=== PATIENT | female | born 1980 | race Caucasian/White ===

== ENCOUNTER 2017-01-15 11:30 | Emergency (ER) | payer BC, OTHER ==
[~2017-01-15] VITALS: Ht 177.8 cm; Wt 182.0 kg
[~2017-01-15 11:30] MED LIST: ESOM20CA PO
[2017-01-15 11:37] VITALS: TEMP 36.8; Ht 177.8 cm; Wt 182.0 kg
--- NOTE | 2017-01-15 11:56 | EMERGENCY ROOM VISIT NOTE ---
History Report prepared by Jaime: Anneliese Carter Under the Supervision of: Dr. Tony Andrade D.O. First contact with patient: 11:46 Chief Complaint: MENTAL HEALTH EVALUATION Stated Complaint: DEPRESSION History of Present Illness The patient is a 36 year old female who presents to the Emergency Room with complaints of worsening depression. The patient admits to a history of depression since she was 15 years old, for which she takes Zoloft, Wellbutrin, BuSpar and Klonopin. She reports in the past 2 weeks things have worsened, and she has thought about suicide. She admits to a plan of "going out of town, taking pills and putting a plastic bag over my head". She denies any triggering events worsening her depression. The patient admits she was previously treated inpatient at the [facility] when she was 18 years old. She follows with a local psychiatrist but does not follow with a therapist. Earlier today, the patient spoke to [facility], who recommended she come to the ED for evaluation. The patient states her LMP was 2 weeks ago and normal. She denies any recent fevers or illnesses or pain or swelling in her legs. She also denies any recent ETOH or illegal drug use. 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 A total of 10 systems reviewed and were otherwise negative. Past Medical & Surgical Medical Problems: (1) Depression (2) History of MRSA infection Social History Smoking Status: Current Every Day Smoker Alcohol Use: none Drug Use: none Marital Status: single Housing Status: lives with family Occupation Status: employed Current/Historical Medications Scheduled Bupropion HCl (Bupropion HCl), 200 MG PO QAM Bupropion HCl (Bupropion HCl), 100 MG PO BID Buspirone Hcl (Buspar), 15 MG PO BID Clonazepam (Klonopin), 0.5 MG PO BID Sertraline (Zoloft), 200 MG PO DAILY Allergies Coded Allergies: Vancomycin (Verified Allergy, Severe, HIVES, 01/15/17) Physical Exam Vital Signs Date Time Temp Pulse Resp B/P (MAP) Pulse Ox O2 Delivery O2 Flow Rate FiO2 01/15/17 17:43 78 18 147/99 97 01/15/17 14:00 80 18 141/101 96 Room Air 01/15/17 11:37 36.8 98 20 150/72 95 Room Air Physical Exam GENERAL: Patient is awake, alert, somewhat anxious appearing, but in no acute distress and resting comfortably EYES: The conjunctivae are clear. The pupils are round and reactive. EARS, NOSE, MOUTH AND THROAT: The nose is without any evidence of any deformity. Mucous membranes are moist tongue is midline NECK: The neck is nontender and supple. RESPIRATORY: Normal respiratory effort is noted there is no evidence of wheezing rhonchi or rales CARDIOVASCULAR: Regular rate and rhythm noted there no murmurs rubs or gallops normal S1 normal S2 GASTROINTESTINAL: The abdomen is soft. Bowel sounds are present in all quadrants. Abdomen is nontender MUSCULOSKELETAL/EXTREMITIES: There is no evidence of gross deformity full range of motion is noted in the hips and shoulders SKIN: There is no obvious evidence of any rash. There are no petechiae, pallor or cyanosis noted. NEUROLOGIC: Patient is awake alert and oriented x3 PSYCHIATRIC: The patient was very anxious appearing, her affect was very flat and she appears depressed and makes poor eye contact. She continues to admit to suicidal ideation with a very elaborate plan. Medical Decision & Procedures Laboratory Results 01/15/17 12:09 Red Blood Count 5.11, Mean Corpuscular Volume 84.5, Mean Corpuscular Hemoglobin 27.8, Mean Corpuscular Hemoglobin Concent 32.9, Mean Platelet Volume 9.5, Neutrophils (%) (Auto) 56.4, Lymphocytes (%) (Auto) 28.7, Monocytes (%) (Auto) 7.3, Eosinophils (%) (Auto) 5.9, Basophils (%) (Auto) 1.2, Neutrophils # (Auto) 4.31, Lymphocytes # (Auto) 2.19, Monocytes # (Auto) 0.56, Eosinophils # (Auto) 0.45, Basophils # (Auto) 0.09 01/15/17 12:09 Test 01/15/17 12:09 01/15/17 12:50 White Blood Count 7.64 K/uL (4.8-10.8) Red Blood Count 5.11 M/uL (4.2-5.4) Hemoglobin 14.2 g/dL (12.0-16.0) Hematocrit 43.2 % (37-47) Mean Corpuscular Volume 84.5 fL (80-100) Mean Corpuscular Hemoglobin 27.8 pg (25-34) Mean Corpuscular Hemoglobin Concent 32.9 g/dl (32-36) Platelet Count 344 K/uL (130-400) Mean Platelet Volume 9.5 fL (7.4-10.4) Neutrophils (%) (Auto) 56.4 % Lymphocytes (%) (Auto) 28.7 % Monocytes (%) (Auto) 7.3 % Eosinophils (%) (Auto) 5.9 % Basophils (%) (Auto) 1.2 % Neutrophils # (Auto) 4.31 K/uL (1.4-6.5) Lymphocytes # (Auto) 2.19 K/uL (1.2-3.4) Monocytes # (Auto) 0.56 K/uL (0.11-0.59) Eosinophils # (Auto) 0.45 K/uL (0-0.5) Basophils # (Auto) 0.09 K/uL (0-0.2) RDW Standard Deviation 41.0 fL (36.4-46.3) RDW Coefficient of Variation 13.4 % (11.5-14.5) Immature Granulocyte % (Auto) 0.5 % Immature Granulocyte # (Auto) 0.04 K/uL (0.00-0.02) Anion Gap 8.0 mmol/L (3-11) Est Creatinine Clear Calc Drug Dose 154.9 ml/min Estimated GFR () 94.2 Estimated GFR (Non- 81.2 BUN/Creatinine Ratio 8.8 (10-20) Calcium Level 8.4 mg/dl (8.5-10.1) Total Bilirubin 0.2 mg/dl (0.2-1) Direct Bilirubin < 0.1 mg/dl (0-0.2) Aspartate Amino Transf (AST/SGOT) 14 U/L (15-37) Alanine Aminotransferase (ALT/SGPT) 23 U/L (12-78) Alkaline Phosphatase 81 U/L (45-117) Total Protein 7.7 gm/dl (6.4-8.2) Albumin 3.6 gm/dl (3.4-5.0) Thyroid Stimulating Hormone (TSH) 0.937 uIu/ml (0.300-4.500) Ethyl Alcohol mg/dL < 3.0 mg/dl (0-3) Urine Color YELLOW Urine Appearance CLOUDY (CLEAR) Urine pH 5.5 (4.5-7.5) Urine Specific [place] 1.016 (1.000-1.030) Urine Protein NEG (NEG) Urine Glucose (UA) NEG (NEG) Urine Ketones NEG (NEG) Urine Occult Blood NEG (NEG) Urine Nitrite POS (NEG) Urine Bilirubin NEG (NEG) Urine Urobilinogen NEG (NEG) Urine Leukocyte Esterase SMALL (NEG) Urine WBC (Auto) >30 /hpf (0-5) Urine RBC (Auto) 0-4 /hpf (0-4) Urine Hyaline Casts (Auto) 5-10 /lpf (0-5) Urine Epithelial Cells (Auto) 20-30 /lpf (0-5) Urine Bacteria (Auto) 4+ (NEG) Urine Test NEG (NEG) Urine Opiates Screen NEG (NEG) Urine Methadone, Qualitative NEG (NEG) Urine Barbiturates NEG (NEG) Urine Phencyclidine (PCP) Level NEG (NEG) Ur Amphetamine/Methamphetamine NEG (NEG) MDMA (Ecstasy) Screen POS (NEG) Urine Benzodiazepines Screen POS (NEG) Urine Cocaine Metabolite NEG (NEG) Urine Marijuana (THC) NEG (NEG) Laboratory results per my review. Medications Administered Medications (Trade) Dose Ordered Sig/Lexi Route Start Time Stop Time Status Last Admin Dose Admin Nitrofurantoin Macrocrystals (Macrobid Cap) 100 mg NOW STAT PO 01/15/17 13:33 01/15/17 13:34 DC 01/15/17 14:07 100 MG Lorazepam (Ativan Tab) 1 mg NOW STAT SL 01/15/17 14:53 01/15/17 14:54 DC 01/15/17 15:21 1 MG ED Course 1148: The patient was evaluated in room A6. A complete history and physical examination were performed. 1333: Macrobid Cap 100 mg PO. 1453: Ativan 1 mg SL. 1510: I reevaluated the patient. She is resting comfortably. I discussed her results and my recommendation she be further evaluated by a [facility] and she verbalized complete understanding and agreement. 1530: Our Psychiatric Passenger Car Conductor informed me the patient has been accepted at [facility] in [place]. She will be transported at 1700 this evening. Medical Decision Prior records/ancillary studies reviewed. Triage Nursing notes reviewed. The patient's history was concerning for possible psychiatric disturbance. Differential diagnosis: Etiologies such as mood disorder, infection, hypoglycemia, electrolyte abnormalities, cardiac sources, intracerebral event, toxicologic, neurologic, as well as others were entertained. The patient is a 36-year-old female who presented to the emergency department for an evaluation of depression. The patient has a very specific suicidal plan. I'm very concerned about the patient's well-being at this time. She was medically cleared in the emergency department. She was treated with Ativan for significant anxiety and also treated with an antibiotic for presumed urinary tract infection on urinalysis. I discussed the patient's laboratory results with her. She was evaluated by the emergency Department metabolic disease case manager. Referrals were made and a bed search was underway. The patient was ultimately accepted at [facility] for inpatient mental health treatment. Medication Reconcilliation Current Medication List: was personally reviewed by me Blood Pressure Screening Patient's blood pressure: Elevated blood pressure Blood pressure disposition: Elevated BP felt to be situational Impression Primary Impression: Depression Additional Impressions: Suicidal ideation UTI (urinary tract infection) Scribe Attestation The scribe's documentation has been prepared under my direction and personally reviewed by me in its entirety. I confirm that the note above accurately reflects all work, treatment, procedures, and medical decision making performed by me. Departure Information Dispostion Mental Health Acute Care (The patient is awaiting transport to [facility] in [place], [place]) Referrals No Doctor, Assigned (PCP) Patient Instructions My [facility] Problem Qualifiers Primary Impression: Depression Depression Type: unspecified Qualified Codes: F32.9 - Major depressive disorder, single episode, unspecified Additional Impressions: UTI (urinary tract infection) Urinary tract infection type: acute cystitis Hematuria presence: without hematuria Qualified Codes: N30.00 - Acute cystitis without hematuria
[2017-01-15] MEDS ORDERED: SERT-234 PO (12:13)
[2017-01-15] MEDS ORDERED: WLL100 PO ×2 (12:13)
[2017-01-15] MEDS ORDERED: BUSP15TA70 PO (12:13)
[2017-01-15] MEDS ORDERED: CLON0.5T3 PO (12:13)
[2017-01-15 12:39] LABS: BASO % 1.2 %; BASO ABS # 0.09 K/uL (0-0.2); COMPLETE YES; EOS % 5.9 %; HEMATOCRIT 43.2 % (37-47); IG% 0.5 %; LYMPH % 28.7 %; LYMPH ABS # 2.19 K/uL (1.2-3.4); MEAN CELL VOLUME 84.5 fL (80-100); MEAN CORPUSCULAR HEMOGLOBIN 27.8 pg (25-34); MEAN CORPUSCULAR HGB CONC 32.9 g/dl (32-36); MEAN PLATELET VOLUME 9.5 fL (7.4-10.4); MONO % 7.3 %; NEUT % 56.4 %; PLATELET COUNT 344 K/uL (130-400); RED BLOOD COUNT 5.11 M/uL (4.2-5.4); WHITE BLOOD COUNT 7.64 K/uL (4.8-10.8)
[2017-01-15 12:58] LABS: BLOOD UREA NITROGEN 8 mg/dl (7-18); CREATININE 0.92 mg/dl (0.60-1.20); GLUCOSE 101 mg/dl (70-99)
[2017-01-15 12:59] LABS: ALT/SGPT 23 U/L (12-78); BUN/CREATININE RATIO 8.8 (10-20); CALCIUM 8.4 mg/dl (8.5-10.1); CARBON DIOXIDE 24 mmol/L (21-32); CHLORIDE 106 mmol/L (98-107); POTASSIUM 3.7 mmol/L (3.5-5.1); SODIUM 138 mmol/L (136-145)
[2017-01-15 13:06] LABS: URINE APPEARANCE CLOUDY (CLEAR); URINE BILIRUBIN NEG (NEG); URINE COLOR YELLOW; URINE EPITHELIAL CELL AUTO 20-30 /lpf (0-5); URINE NITRITE POS (NEG); URINE PH 5.5 (4.5-7.5); URINE SPECIFIC GRAVITY 1.016 (1.000-1.030); UROBILINOGEN NEG (NEG)
[2017-01-15 13:09] LABS: ALKALINE PHOSPHATASE 81 U/L (45-117); AST/SGOT 14 U/L (15-37); THYROID STIMULATING HORMONE 0.937 uIu/ml (0.300-4.500)
[2017-01-15 13:10] LABS: MANUAL MICROSCOPIC REQUIRED? NO; REVIEW REQ? YES
[2017-01-15 13:29] LABS: BENZODIAZEPINE, URINE POS (NEG); COCAINE,URINE NEG (NEG); PHENCYCLIDINE, URINE NEG (NEG)
[2017-01-15] MEDS ORDERED: NITROFURANTOIN MONOHYDRATE 100 MG CAP PO STA (13:33)
[2017-01-15] MEDS ORDERED: LORAZEPAM 1 MG TAB SL STA (14:53)
[2017-01-15 17:43] VITALS: BP 147/99; PULSE 78; O2SAT 97
--- NOTE | 2017-01-17 12:45 | Pharmacy Progress Note ---
ED Pharmacist Culture FollowUp Date of Service: Jan 17, 2017. Patient's urine cx from 01/15 is growing > 100,000 CFU/mL of e coli. This patient had not reported urinary symptoms, was afebrile, was not , immunocompromised or undergoing planned urologic procedure. This likely reflects asymptomatic bacteruria and no tx is indicated.
[2017-01-18 22:30] LABS: HYDROXYETHYLFLURAZEPAM CONF NEGATIVE NG/ML (CUTOFF=50); HYDROXYMIDAZOLAM NEGATIVE NG/ML (CUTOFF=50); HYDROXYTRIAZOLAM CONF NEGATIVE NG/ML (CUTOFF=50); TEMAZEPAM CONF NEGATIVE NG/ML (CUTOFF=50)
== END 2017-01-15 18:10 ==
LOC: C.EDB 11:31 → C.EDA 18:10
DX: F32.9 Major depressive disorder, single episode, unspecified (principal); R45.851 Suicidal ideations; N30.00 Acute cystitis without hematuria; F17.200 Nicotine dependence, unspecified, uncomplicated

== ENCOUNTER 2021-01-14 18:06 | Inpatient (IN) ==
--- NOTE | 2021-01-14 18:49 | Emergency Department Note ---
Impression & Plan Depression with suicidal ideation ED Provider Note Provider: Alex Aguero MD DATE OF SERVICE: 01/14/2021 CHIEF COMPLAINT: Depression now with suicidal ideations HISTORY OF PRESENT ILLNESS: Patient is a 40-year-old female underlying history of depression and bipolar presenting with mother today reporting over the past week decline in mental health. States she has been sleeping and nonfunctional at home and only binge eating at times. Staying in a dark room. States she now had thoughts of wanting to end her life and planning to overdose on medications. She denies trying this before. She denies trying to harm her self currently. Denies any fights with others or wishes to harm others. Has been on her psychiatric medications for the last several weeks but took a drug holiday for several weeks beginning of December she reports. Talked with her therapist [facility] and came here for evaluation. Some increased stress due to L Pap as well as family going on vacation. She currently is at home with her mother. Denies drug or alcohol issues but is on medical marijuana. Patient is here seeking voluntary inpatient treatment. She reports a history of prior inpatient psychiatric treatment. REVIEW OF SYSTEMS: A total of 10 review of systems was obtained and negative except as stated above in the HPI. PAST MEDICAL HISTORY: As noted above MEDICATIONS: Reviewed her medications with the patient SOCIAL HISTORY: Lives at home with mother, denies alcohol use or tobacco use, uses medical marijuana PHYSICAL EXAM: GENERAL: alert and oriented somewhat tearful at times sitting on stretcher Head: normocephalic and atraumatic EYES: No injection, discharge or icterus. NECK: Trachea midline. ENT: Mucous membranes pink and moist. LUNGS: Airway patent. No retractions. Breath sounds clear HEART: Regular rate and rhythm. No chest wall tenderness SKIN: Acyanotic, warm, dry, without rashes EXTREMITIES: Without swelling or significant deformity appreciated. NEUROLOGICAL: No focal deficits. No aphasia. No facial droop or slurred speech. Psych: Denies HI. Not responding to external stimuli denies hallucination. Patient reports depression and anxiety with suicidal ideation and having a plan to overdose on medications to kill herself and asphyxiate herself Patient's laboratory studies and imaging reviewed. Differential includes Mood disorder, infection, hypoglycemia, electrolyte abnormalities, cardiac sources, intracerebral event, toxicologic, trauma, neurologic, as well as other pathologies. IMPRESSION/MEDICAL DECISION MAKING: Patient with a underlying history of Bipolar states worst anxiety depression now with formulating a plan to harm her self with suicidal ideations. States she is not that functional at home. Has a plan but has not tried to harm her self. Patient wishing for inpatient treatment. Basic labs were obtained as well as a Covid test. Seen with the psychiatric family preservation caseworker. Blood work here was unremarkable. Bed search was initiated. Patient was accepted [facility] for further voluntary inpatient treatment. DIAGNOSIS: Depression with suicidal ideation DISPOSITION: transfer to [facility] for inpatient psychiatric care Past Med/Surg History Medical History (Updated 01/14/21 @ 18:49 by Alex Aguero M.D.) Depression Family History Other No pertinent family history in first degree relatives Social History Smoking Status: Former smoker Tobacco Type: Cigarettes Preferred Language: Greenlandic Feels Safe at Home: Yes Allergies Allergies Allergy/AdvReac Type Severity Reaction Status Date / Time vancomycin Allergy Severe HIVES Verified 08/02/18 09:49 doxycycline AdvReac Severe Vomiting Unverified 08/02/18 09:49 Home Meds Home Medications Medication Instructions Recorded Confirmed Abilify 5 mg DAILY 01/14/21 01/14/21 Trintellix 10 mg PO DAILY 01/14/21 01/14/21 Results & Data (ED) Vital Signs Vital Signs - 24 hr 01/14/21 18:20 01/14/21 20:00 01/14/21 22:55 Temperature 36.6 C Temperature Source Temporal Artery Scan Pulse Rate 111 H 90 Pulse Rate [Apical] 98 H Respiratory Rate 20 20 20 Respiratory Effort / Characteristics Non-Labored Spontaneous Respiratory Depth Normal Respiratory Pattern Regular Blood Pressure 152/106 H 157/84 H Blood Pressure [Left Arm] 148/85 H Blood Pressure Mean 121 Blood Pressure Mean [Left Arm] 106 Blood Pressure Position Sitting Pulse Oximetry 97 98 97 Oxygen Delivery Method Room Air Room Air Sepsis Recent Fever Within 48 Hours No Sepsis New/Unexplained Change in Mental Status N/A Sepsis Action Taken by Nursing No Action Required Laboratory Data Result diagrams: 01/14/21 19:21 01/14/21 19:21 Lab Results 01/14/21 01/14/21 01/14/21 Range/Units 18:47 18:47 19:21 WBC 5.26 (4.8-10.8) K/uL RBC 4.84 (4.2-5.4) M/uL Hgb 14.5 (12.0-16.0) g/dL Hct 42.0 (37-47) % MCV 86.8 (80-100) fL MCH 30.0 (25-34) pg MCHC 34.5 (32-36) g/dL RDW Std Deviation 42.0 (36.4-46.3) fL RDW Coeff of Eric 13.3 (11.5-14.5) % Plt Count 300 (130-400) K/uL MPV 9.2 (7.4-10.4) fL Immature Gran % (Auto) 0.2 % Neut % (Auto) 57.4 % Lymph % (Auto) 24.7 % [place] % (Auto) 8.6 % Eos % (Auto) 7.2 % Baso % (Auto) 1.9 % Neut # (Auto) 3.02 (1.4-6.5) K/uL Lymph # (Auto) 1.30 (1.2-3.4) K/uL [place] # (Auto) 0.45 (0.11-0.59) K/uL Eos # (Auto) 0.38 (0-0.5) K/uL Baso # (Auto) 0.10 (0-0.2) K/uL Immature Gran # (Auto) 0.01 (0.00-0.02) K/uL Sodium (136-145) mmol/L Potassium (3.5-5.1) mmol/L Chloride (98-107) mmol/L Carbon Dioxide (21-32) mmol/L Anion Gap (3-11) BUN (7-18) mg/dl Creatinine (0.6-1.2) mg/dl Est Cr Clr Drug Dosing Est GFR ( Amer) ml/min Est GFR (Non-Af Amer) ml/min BUN/Creatinine Ratio (10-20) Glucose (70-99) mg/dl Calcium (8.5-10.1) mg/dl Total Bilirubin (0.2-1) mg/dl AST (15-37) U/L ALT (12-78) U/L Alkaline Phosphatase (45-117) U/L Total Protein (6.4-8.2) gm/dl Albumin (3.4-5.0) gm/dl Globulin (2.5-4.0) gm/dl Albumin/Globulin Ratio (0.9-2) TSH (0.300-4.500) uIu/ml Urine Color Urine Appearance (Clear) Urine pH (4.5-7.5) Ur Specific [place] (1.000-1.030) Urine Protein (Negative) Urine Glucose (UA) (Negative) Urine Ketones (Negative) Urine Blood (Negative) Urine Nitrite (Negative) Urine Bilirubin (Negative) Urine Urobilinogen (Negative) Ur Leukocyte Esterase (Negative) POC Ur Test (NEG) Salicylates (2.8-20) mg/dl Urine Opiates Screen (Neg) Ur Methadone, Qual (Neg) Acetaminophen (10-30) ug/ml Urine Barbiturates (Neg) Ur Phencyclidine (PCP) (Neg) U Amphetamin/Meth Scrn (Neg) MDMA (Ecstasy) Screen (Neg) U Benzodiazepines Scrn (Neg) Ur Cocaine Metabolite (Neg) U Marijuana (THC) Screen (Neg) Ethyl Alcohol mg/dL (0-3) mg/dl COVID-19 Eval Order Covid19 at [facility] SARS-CoV-2 (PCR) NEGATIVE (Negative) 01/14/21 01/14/21 01/14/21 Range/Units 19:21 19:21 19:21 WBC (4.8-10.8) K/uL RBC (4.2-5.4) M/uL Hgb (12.0-16.0) g/dL Hct (37-47) % MCV (80-100) fL MCH (25-34) pg MCHC (32-36) g/dL RDW Std Deviation (36.4-46.3) fL RDW Coeff of Eric (11.5-14.5) % Plt Count (130-400) K/uL MPV (7.4-10.4) fL Immature Gran % (Auto) % Neut % (Auto) % Lymph % (Auto) % [place] % (Auto) % Eos % (Auto) % Baso % (Auto) % Neut # (Auto) (1.4-6.5) K/uL Lymph # (Auto) (1.2-3.4) K/uL [place] # (Auto) (0.11-0.59) K/uL Eos # (Auto) (0-0.5) K/uL Baso # (Auto) (0-0.2) K/uL Immature Gran # (Auto) (0.00-0.02) K/uL Sodium 138 (136-145) mmol/L Potassium 4.1 (3.5-5.1) mmol/L Chloride 109 H (98-107) mmol/L Carbon Dioxide 22 (21-32) mmol/L Anion Gap 7.0 (3-11) BUN 16 (7-18) mg/dl Creatinine 1.07 (0.6-1.2) mg/dl Est Cr Clr Drug Dosing Not Reportable Est GFR ( Amer) 76.3 ml/min Est GFR (Non-Af Amer) 65.8 ml/min BUN/Creatinine Ratio 15.1 (10-20) Glucose 94 (70-99) mg/dl Calcium 9.2 (8.5-10.1) mg/dl Total Bilirubin 0.5 (0.2-1) mg/dl AST 35 (15-37) U/L ALT 56 (12-78) U/L Alkaline Phosphatase 83 (45-117) U/L Total Protein 8.2 (6.4-8.2) gm/dl Albumin 4.0 (3.4-5.0) gm/dl Globulin 4.2 H (2.5-4.0) gm/dl Albumin/Globulin Ratio 0.9 (0.9-2) TSH 1.350 (0.300-4.500) uIu/ml Urine Color Urine Appearance (Clear) Urine pH (4.5-7.5) Ur Specific [place] (1.000-1.030) Urine Protein (Negative) Urine Glucose (UA) (Negative) Urine Ketones (Negative) Urine Blood (Negative) Urine Nitrite (Negative) Urine Bilirubin (Negative) Urine Urobilinogen (Negative) Ur Leukocyte Esterase (Negative) POC Ur Test (NEG) Salicylates < 1.7 L (2.8-20) mg/dl Urine Opiates Screen (Neg) Ur Methadone, Qual (Neg) Acetaminophen < 2 L (10-30) ug/ml Urine Barbiturates (Neg) Ur Phencyclidine (PCP) (Neg) U Amphetamin/Meth Scrn (Neg) MDMA (Ecstasy) Screen (Neg) U Benzodiazepines Scrn (Neg) Ur Cocaine Metabolite (Neg) U Marijuana (THC) Screen (Neg) Ethyl Alcohol mg/dL < 3.0 (0-3) mg/dl COVID-19 Eval Order SARS-CoV-2 (PCR) (Negative) 01/14/21 01/14/21 01/14/21 Range/Units 19:42 19:42 19:54 WBC (4.8-10.8) K/uL RBC (4.2-5.4) M/uL Hgb (12.0-16.0) g/dL Hct (37-47) % MCV (80-100) fL MCH (25-34) pg MCHC (32-36) g/dL RDW Std Deviation (36.4-46.3) fL RDW Coeff of Eric (11.5-14.5) % Plt Count (130-400) K/uL MPV (7.4-10.4) fL Immature Gran % (Auto) % Neut % (Auto) % Lymph % (Auto) % [place] % (Auto) % Eos % (Auto) % Baso % (Auto) % Neut # (Auto) (1.4-6.5) K/uL Lymph # (Auto) (1.2-3.4) K/uL [place] # (Auto) (0.11-0.59) K/uL Eos # (Auto) (0-0.5) K/uL Baso # (Auto) (0-0.2) K/uL Immature Gran # (Auto) (0.00-0.02) K/uL Sodium (136-145) mmol/L Potassium (3.5-5.1) mmol/L Chloride (98-107) mmol/L Carbon Dioxide (21-32) mmol/L Anion Gap (3-11) BUN (7-18) mg/dl Creatinine (0.6-1.2) mg/dl Est Cr Clr Drug Dosing Est GFR ( Amer) ml/min Est GFR (Non-Af Amer) ml/min BUN/Creatinine Ratio (10-20) Glucose (70-99) mg/dl Calcium (8.5-10.1) mg/dl Total Bilirubin (0.2-1) mg/dl AST (15-37) U/L ALT (12-78) U/L Alkaline Phosphatase (45-117) U/L Total Protein (6.4-8.2) gm/dl Albumin (3.4-5.0) gm/dl Globulin (2.5-4.0) gm/dl Albumin/Globulin Ratio (0.9-2) TSH (0.300-4.500) uIu/ml Urine Color Yellow Urine Appearance Clear (Clear) Urine pH 5.0 (4.5-7.5) Ur Specific [place] 1.019 (1.000-1.030) Urine Protein Negative (Negative) Urine Glucose (UA) Negative (Negative) Urine Ketones Negative (Negative) Urine Blood Negative (Negative) Urine Nitrite Negative (Negative) Urine Bilirubin Negative (Negative) Urine Urobilinogen Negative (Negative) Ur Leukocyte Esterase Negative (Negative) POC Ur Test NEG (NEG) Salicylates (2.8-20) mg/dl Urine Opiates Screen Neg (Neg) Ur Methadone, Qual Neg (Neg) Acetaminophen (10-30) ug/ml Urine Barbiturates Neg (Neg) Ur Phencyclidine (PCP) Neg (Neg) U Amphetamin/Meth Scrn Neg (Neg) MDMA (Ecstasy) Screen Neg (Neg) U Benzodiazepines Scrn Neg (Neg) Ur Cocaine Metabolite Neg (Neg) U Marijuana (THC) Screen Pos H (Neg) Ethyl Alcohol mg/dL (0-3) mg/dl COVID-19 Eval Order SARS-CoV-2 (PCR) (Negative) Discharge Plan Visit Data Chief Complaint: Mental Health Evaluation Stated Complaint: SUICIDAL WITH A PLAN ED Provider: lAex Aguero Discharge Problem: Depression with suicidal ideation Patient Disposition: Admitted As Inpatient Forms Stand Alone Forms: [facility], Suicide Prevention Resources Prescriptions Prescriptions: No Action Abilify 5 mg DAILY RF: 0 Trintellix 10 mg PO DAILY RF: 0 Referrals Referrals: Elise House DO [Primary Care Provider] -
[2021-01-14 19:32] LABS: Basophils % (auto) 1.9 %; Eosinophils # (auto) 0.38 K/uL (0-0.5); Eosinophils % (auto) 7.2 %; Hemoglobin 14.5 g/dL (12.0-16.0); Immature Granulocytes # (auto) 0.01 K/uL (0.00-0.02); Immature Granulocytes % (auto) 0.2 %; Lymphocytes % (auto) 24.7 %; Mean Corpuscular Hgb Conc 34.5 g/dL (32-36); Mean Corpuscular Volume 86.8 fL (80-100); Mean Platelet Volume 9.2 fL (7.4-10.4); Monocytes # (auto) 0.45 K/uL (0.11-0.59); Monocytes % (auto) 8.6 %; Neutrophils # (auto) 3.02 K/uL (1.4-6.5); Neutrophils % (auto) 57.4 %; Platelet Count 300 K/uL (130-400); RDW Coefficient of Variation 13.3 % (11.5-14.5); Red Blood Count 4.84 M/uL (4.2-5.4); White Blood Count 5.26 K/uL (4.8-10.8)
[2021-01-14 19:51] LABS: Appearance Urine Clear (Clear); Bilirubin Urine Negative (Negative); Blood Urine Negative (Negative); Color Urine Yellow; Glucose Urine UA Negative (Negative); Ketones Urine Negative (Negative); Leukocyte Esterase Urine Negative (Negative); Nitrite Urine Negative (Negative); Protein Urine Negative (Negative); Specific Gravity Urine 1.019 (1.000-1.030); Urobilinogen Urine Negative (Negative)
[2021-01-14 19:52] LABS: Aspartate Aminotransferase 35 U/L (15-37); BUN Creatinine Ratio 15.1 (10-20); Blood Urea Nitrogen 16 mg/dl (7-18); Calcium 9.2 mg/dl (8.5-10.1); Carbon Dioxide 22 mmol/L (21-32); Chloride 109 mmol/L (98-107); Est GFR (African American) 76.3 ml/min; Est GFR (Non-African American) 65.8 ml/min; Glucose 94 mg/dl (70-99); Potassium 4.1 mmol/L (3.5-5.1); Sodium 138 mmol/L (136-145)
[2021-01-14 20:02] LABS: Alanine Aminotransferase 56 U/L (12-78); Albumin Globulin Ratio 0.9 (0.9-2); Alkaline Phosphatase 83 U/L (45-117); Bilirubin,Total 0.5 mg/dl (0.2-1); Globulin 4.2 gm/dl (2.5-4.0); Total Protein 8.2 gm/dl (6.4-8.2)
[2021-01-14 20:18] LABS: Amphetamines+Metham, Urine Neg (Neg); Barbiturates, Urine Neg (Neg); Benzodiazepine, Urine Neg (Neg); Cocaine, Urine Neg (Neg); MDMA (Ecstacy), Urine Neg (Neg); Methadone, Urine Neg (Neg); Opiate, Urine Neg (Neg); Phencyclidine, Urine Neg (Neg)
[2021-01-14 20:29] LABS: Acetaminophen < 2 ug/ml (10-30)
[2021-01-14 20:30] LABS: Salicylate < 1.7 mg/dl (2.8-20)
[2021-01-14] MEDS ORDERED: SODIUM CHLORIDE 0.65% NA SOLN 45 ML (OCEAN) PRN (22:50)
[2021-01-14] MEDS ORDERED: hydrOXYzine HCl 25 MG TAB PO PRN ×2 (22:50)
[2021-01-14] MEDS ORDERED: MAGNESIUM HYDROXIDE SUSP 30 ML UDC PO PRN (22:50)
[2021-01-14] MEDS ORDERED: ACETAMINOPHEN 325 MG TAB PO PRN (22:50)
[2021-01-14] MEDS: VORTIOXETINE HYDROBROMIDE PO SCH ×2 (23:53→23:58)
[2021-01-14] MEDS: ARIPiprazole 10 MG TAB PO SCH ×2 (23:54→23:58)
[2021-01-15] MEDS: PROPRANOLOL HCL 20 MG TAB PO SCH ×2 (10:18→21:00)
[2021-01-15] MEDS: metFORMIN HCL 500 MG TAB PO SCH ×2 (10:18→17:15)
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
[2021-01-15] MEDS: ARIPiprazole 5 MG TAB PO SCH (21:01)
[2021-01-15] MEDS: VORTIOXETINE HYDROBROMIDE PO SCH (21:07)
[2021-01-15] MEDS: ALUMINUM/MAGNESIUM SUSP 30 ML UDC PO PRN (22:29)
[2021-01-15] MEDS: diazePAM 5 MG TABLET PO PRN (22:29)
[2021-01-16] MEDS: PROPRANOLOL HCL 20 MG TAB PO SCH ×2 (08:48→21:02)
[2021-01-16] MEDS: metFORMIN HCL 500 MG TAB PO SCH ×2 (08:48→17:06)
[2021-01-16] MEDS: ONDANSETRON 4 MG OD TAB PO PRN (11:05)
--- NOTE | 2021-01-16 11:30 | Psychiatric Progress Note ---
Date of Service January 16, 2021 Impression / Recommendations Impression 40-year-old female with history of mood disorder presenting with increasing depression and suicidal ideation. Patient carries a diagnosis of bipolar disorder although provides a history of manic-like symptoms only in the context of Adderall usage. We will continue to gather outpatient records in order to elucidate diagnosis. Patient will benefit from inpatient hospitalization for purposes of safety, stabilization, medication management. (1) Depression with suicidal ideation: The patient was admitted to the [facility] ([facility]) on every 15 minute checks (behavioral with suicide precautions for safety. The patient will participate in group, recreational, and milieu therapies and will be offered additional individual and family sessions as clinically appropriate. 01/16/2021we will continue on the same regimen for now, as needed Zofran added to aid with nausea. 01/15/2021atient is taking propanolol 20 twice daily, Trintellix 10 p.o. daily and Abilify 5 mg p.o. nightly. In order to target impulsivity we will increase Abilify to 7.5 mg nightly starting tonight. Inventory Assets Strengths: Family support, insight Needs: Stability of mood Risk Factors Assessment Male: No : Yes Mental Health Diagnoses: Yes Hopelessness: No Protective Factors Assessment Faith Beliefs: Yes Employed: No (disabled) Stable Relationships: Yes Supportive Family: Yes Interval History Chief Complaint "I'm okay, just a little nauseous". Review of Systems Sleep Information Total Hours of Sleep: 6 Sleep Comments: pt given vistaril per rn. pt on q-15 minute checks Meal Information Percent Meal Consumed - Breakfast: 95 Percent Meal Consumed - Lunch: 75 Percent Meal Consumed - Dinner: 50 Subjective Subjective Patient seen, chart reviewed and case discussed with treatment team, nursing and social work. Patient reports a good night of sleep and strong appetite. Patient does report some nausea, unsure if this is due to her anxiety or from the medication. We will continue to watch and observe for this. Patient provided with as needed Zofran Regarding mood, patient reports poor mood and low energy. Also complaining of anxiety. She was encouraged to allow the medication time to work. I spent 30 minutes with the patient, 50% of which was dedicated to counselling and coordination of care. Physical Exam Psychiatric Orientation: alert and oriented x 3 Apperance: appropriately groomed Eye Contact: + fair eye contact Motor Behavior: no abnormal motor movements Speech: normal rate/rhythm/volume of speech Affect: + depressed affect, + anxious affect and + tearful affect Mood: + depressed mood and + anxious mood Thought Process: goal directed thought process and linear/logical thought process Thought Content: reality based without delusions Suicidal Thoughts: denies suicidal intent; + reports suicidal thoughts and + reports suicidal plan Homicidal Thoughts: denies homicidal thoughts Hallucinations: no auditory hallucinations and no visual hallucinations Cognition: remote memory grossly intact Estimated Intelligence: consistent with education level Insight: + fair insight Judgement: + poor judgement Vital Signs (Past 24 Hours) Last Vital Signs Temp 36.6 C 01/16/21 06:46 Pulse 114 H 01/16/21 06:47 Resp 18 01/16/21 06:46 BP 136/88 01/16/21 06:47 Pulse Ox 97 01/14/21 23:22 Results & Data ([facility]) Current Inpatient Medications Current Inpatient Medications: Current Inpatient Medications Acetaminophen (Acetaminophen 325 Mg Tab) 650 mg PO Q4H PRN PRN Reason: Headache or Minor Fever Stop: 02/13/21 22:49 Al Hydrox/Mg Hydrox/Simethicone (Aluminum/Magnesium Susp 30 Ml Udc) 30 ml PO Q4H PRN PRN Reason: GI Upset Stop: 02/13/21 22:49 Last Admin: 01/15/21 22:29 Dose: 30 ml Documented by: Aripiprazole (Aripiprazole 5 Mg Tab) 7.5 mg PO [facility] Stop: 02/14/21 21:59 Last Admin: 01/15/21 21:01 Dose: 7.5 mg Documented by: Bismuth Subsalicylate (Bismuth Subsalicylate Liqd 236 Ml) 15 ml PO PRN PRN PRN Reason: Loose Stool Stop: 02/13/21 22:49 Diazepam (Diazepam 5 Mg Tablet) 5 mg PO BID PRN PRN Reason: Anxiety Stop: 02/14/21 11:48 Last Admin: 01/15/21 22:29 Dose: 5 mg Documented by: Magnesium Hydroxide (Magnesium Hydroxide Susp 30 Ml Udc) 30 ml PO DAILY PRN PRN Reason: Constipation Stop: 02/13/21 22:49 Metformin HCl (Metformin Hcl 500 Mg Tab) [facility] Stop: 02/14/21 08:59 Last Admin: 01/16/21 08:48 Dose: 1,000 mg Documented by: Ondansetron HCl (Ondansetron 4 Mg Od Tab) 4 mg PO Q8H PRN PRN Reason: Nausea Stop: 02/15/21 10:48 Last Admin: 01/16/21 11:05 Dose: 4 mg Documented by: Propranolol HCl (Propranolol Hcl 20 Mg Tab) 20 mg PO BID JENNY Stop: 02/14/21 08:59 Last Admin: 01/16/21 08:48 Dose: 20 mg Documented by: Sodium Chloride (Sodium Chloride 0.65% Na Soln 45 Ml ([place])) 1 - 2 sprays NA PRN PRN PRN Reason: Nasal Dryness/Congestion Stop: 02/13/21 22:49 Vortioxetine (Vortioxetine Hydrobromide) 1 ea PO HS JENNY Stop: 02/14/21 21:59 Last Admin: 01/15/21 21:07 Dose: 1 ea Documented by: Mental Health & Subst Abuse Tx Psychiatrist Name of Psychiatrist: Iwona Barry Psychiatrist's Date of Appointment with Psychiatrist: 01/25/21 Time of Appointment with Psychiatrist: 2:20 p.m. Psychiatric Appointment Comment: [id number] [facility] Therapist Name of Therapist: [facility] The[facility]'s Date of Therapist Appointment: 01/21/21 Time of Therapist Appointment: 3:00 p.m. Therapy Appointment Comment: [address] [place] [address] Buttonhole Tacker Name of Buttonhole Tacker: None Post Discharge Appointments Primary Care Physician Name Of Family Doctor: [facility] Date of Appointment with PCP: 01/28/21 Time of Appointment with PCP: 10:40 a.m. Provider Appointment Comment: [phone] [facility] Contact Information Discharge Discharge Address: [address] [place] [address], [place]
[2021-01-16] MEDS: BISMUTH SUBSALICYLATE LIQD 236 ML PO PRN (17:49)
[2021-01-16] MEDS: diazePAM 5 MG TABLET PO PRN (17:51)
[2021-01-16] MEDS: ALUMINUM/MAGNESIUM SUSP 30 ML UDC PO PRN (17:52)
[2021-01-16] MEDS: VORTIOXETINE HYDROBROMIDE PO SCH (21:00)
[2021-01-16] MEDS: ARIPiprazole 5 MG TAB PO SCH (21:01)
[2021-01-17] MEDS: diazePAM 5 MG TABLET PO PRN (07:07)
[2021-01-17] MEDS ORDERED: IBUPROFEN 800 MG TAB PO PRN (08:45)
[2021-01-17] MEDS: PROPRANOLOL HCL 20 MG TAB PO SCH ×2 (08:48→21:06)
[2021-01-17] MEDS: metFORMIN HCL 500 MG TAB PO SCH ×2 (08:49→17:30)
[2021-01-17] MEDS: ONDANSETRON 4 MG OD TAB PO PRN (09:57)
[2021-01-17] MEDS: diazePAM 5 MG TABLET PO SCH ×2 (10:01→21:10)
[2021-01-17 13:31] LABS: Marijuana Quant, GCMS Urine 92 ng/mL (<5)
--- NOTE | 2021-01-17 15:14 | Psychiatric Progress Note ---
Date of Service January 17, 2021 Impression / Recommendations Impression 40-year-old female with history of mood disorder presenting with increasing depression and suicidal ideation. Patient carries a diagnosis of bipolar disorder although provides a history of manic-like symptoms only in the context of Adderall usage. We will continue to gather outpatient records in order to elucidate diagnosis. Patient will benefit from inpatient hospitalization for purposes of safety, stabilization, medication management. (1) Depression with suicidal ideation: The patient was admitted to the [facility] ([facility] unit) on every 15 minute checks (behavioral with suicide precautions for safety. The patient will participate in group, recreational, and milieu therapies and will be offered additional individual and family sessions as clinically appropriate. 01/16/2021we will continue on the same regimen for now, as needed Zofran added to aid with nausea. 01/15/2021atient is taking propanolol 20 twice daily, Trintellix 10 p.o. daily and Abilify 5 mg p.o. nightly. In order to target impulsivity we will increase Abilify to 7.5 mg nightly starting tonight. Inventory Assets Strengths: Family support, insight Needs: Stability of mood Risk Factors Assessment Male: No : Yes Mental Health Diagnoses: Yes Hopelessness: No Protective Factors Assessment Voodoo Beliefs: Yes Employed: No (disabled) Stable Relationships: Yes Supportive Family: Yes Interval History Chief Complaint "I'm anxious". Review of Systems Sleep Information Total Hours of Sleep: 5 Sleep Comments: Pt awake once with complaints of pain - see MAR and nurse's note. Meal Information Percent Meal Consumed - Breakfast: 100 Percent Meal Consumed - Lunch: 70 Percent Meal Consumed - Dinner: 50 Subjective Subjective Patient seen, chart reviewed and case discussed with treatment team, nursing and social work. Patient reports a poor night of sleep but strong appetite. She has been feeling nauseous but reports some relief with the Zofran. It appears that her nausea has an anxious connection as she has done better when given Valium in the morning. We will move Valium to standing for now. Patient also reports significant anxiety due to environmental factors. Minimal to no improvement made thus far. I spent 30 minutes with the patient, 50% of which was dedicated to counselling and coordination of care. Physical Exam Psychiatric Orientation: alert and oriented x 3 Apperance: appropriately groomed Eye Contact: + fair eye contact Motor Behavior: no abnormal motor movements Speech: normal rate/rhythm/volume of speech Affect: + depressed affect, + anxious affect and + tearful affect Mood: + depressed mood and + anxious mood Thought Process: goal directed thought process and linear/logical thought process Thought Content: reality based without delusions Suicidal Thoughts: denies suicidal intent; + reports suicidal thoughts and + reports suicidal plan Homicidal Thoughts: denies homicidal thoughts Hallucinations: no auditory hallucinations and no visual hallucinations Cognition: remote memory grossly intact Estimated Intelligence: consistent with education level Insight: + fair insight Judgement: + poor judgement Vital Signs (Past 24 Hours) Last Vital Signs Temp 36.7 C 01/17/21 06:46 Pulse 98 H 01/17/21 06:46 Resp 18 01/17/21 06:46 BP 121/81 01/17/21 06:46 Pulse Ox 97 01/14/21 23:22 [facility] Laboratory Results Laboratory Results - last 24 hr 01/14/21 19:42 U Marijuana THC Carboxy 92 H Drug Screen Comment SEE NOTE Current Inpatient Medications Current Inpatient Medications: Current Inpatient Medications Acetaminophen (Acetaminophen 325 Mg Tab) 650 mg PO Q4H PRN PRN Reason: Headache or Minor Fever Stop: 02/13/21 22:49 Last Admin: 01/17/21 03:39 Dose: 650 mg Documented by: Al Hydrox/Mg Hydrox/Simethicone (Aluminum/Magnesium Susp 30 Ml Udc) 30 ml PO Q4H PRN PRN Reason: GI Upset Stop: 02/13/21 22:49 Last Admin: 01/16/21 17:52 Dose: 30 ml Documented by: Aripiprazole (Aripiprazole 5 Mg Tab) 7.5 mg PO HS JENNY Stop: 02/14/21 21:59 Last Admin: 01/16/21 21:01 Dose: 7.5 mg Documented by: Bismuth Subsalicylate (Bismuth Subsalicylate Liqd 236 Ml) 15 ml PO PRN PRN PRN Reason: Loose Stool Stop: 02/13/21 22:49 Last Admin: 01/16/21 17:49 Dose: 15 ml Documented by: Diazepam (Diazepam 5 Mg Tablet) 2.5 mg PO BID JENNY Stop: 02/16/21 09:29 Last Admin: 01/17/21 10:01 Dose: Not Given Documented by: Ibuprofen (Ibuprofen 800 Mg Tab) 800 mg PO Q8 PRN PRN Reason: Pain Stop: 02/16/21 08:44 Last Admin: 01/17/21 09:57 Dose: 800 mg Documented by: Magnesium Hydroxide (Magnesium Hydroxide Susp 30 Ml Udc) 30 ml PO DAILY PRN PRN Reason: Constipation Stop: 02/13/21 22:49 Metformin HCl (Metformin Hcl 500 Mg Tab) 1,000 mg PO BIDM JENNY Stop: 02/14/21 08:59 Last Admin: 01/17/21 08:49 Dose: 1,000 mg Documented by: Ondansetron HCl (Ondansetron 4 Mg Od Tab) 4 mg PO Q8H PRN PRN Reason: Nausea Stop: 02/15/21 10:48 Last Admin: 01/17/21 09:57 Dose: 4 mg Documented by: Propranolol HCl (Propranolol Hcl 20 Mg Tab) 20 mg PO BID JENNY Stop: 02/14/21 08:59 Last Admin: 01/17/21 08:48 Dose: 20 mg Documented by: Sodium Chloride (Sodium Chloride 0.65% Na Soln 45 Ml ([place])) 1 - 2 sprays NA PRN PRN PRN Reason: Nasal Dryness/Congestion Stop: 02/13/21 22:49 Vortioxetine (Vortioxetine Hydrobromide) 1 ea PO HS JENNY Stop: 02/14/21 21:59 Last Admin: 01/16/21 21:00 Dose: 1 ea Documented by: Mental Health & Subst Abuse Tx Psychiatrist Name of Psychiatrist: Iwnoa Barry Psychiatrist's Date of Appointment with Psychiatrist: 01/25/21 Time of Appointment with Psychiatrist: 2:20 p.m. Psychiatric Appointment Comment: [id number] [facility] Therapist Name of Therapist: [facility] Abbey Duvall Therapist's Date of Therapist Appointment: 01/21/21 Time of Therapist Appointment: 3:00 p.m. Therapy Appointment Comment: [address] [place] [place] [address] Electric Power Superintendent Name of Electric Power Superintendent: None Post Discharge Appointments Primary Care Physician Name Of Family Doctor: [facility] Date of Appointment with PCP: 01/28/21 Time of Appointment with PCP: 10:40 a.m. Provider Appointment Comment: [id number] [place] Contact Information Discharge Discharge Address: [address], [place], [place]
[2021-01-17] MEDS: BISMUTH SUBSALICYLATE LIQD 236 ML PO PRN (18:54)
[2021-01-17] MEDS: ALUMINUM/MAGNESIUM SUSP 30 ML UDC PO PRN (18:54)
[2021-01-17] MEDS: ARIPiprazole 5 MG TAB PO SCH (21:07)
[2021-01-17] MEDS: VORTIOXETINE HYDROBROMIDE PO SCH (21:09)
[2021-01-18] MEDS: diazePAM 5 MG TABLET PO SCH ×2 (08:48→21:06)
[2021-01-18] MEDS: metFORMIN HCL 500 MG TAB PO SCH ×2 (08:48→17:29)
[2021-01-18] MEDS: PROPRANOLOL HCL 20 MG TAB PO SCH ×2 (08:49→21:07)
[2021-01-18 09:20] LABS: Albumin Globulin Ratio 0.9 (0.9-2); Albumin Level 3.7 gm/dl (3.4-5.0); Bilirubin,Total 0.9 mg/dl (0.2-1); Calcium 9.2 mg/dl (8.5-10.1); Creatinine Clr Calc Pharmacy 144.2 ml/min; Est GFR (African American) 75.4 ml/min; Est GFR (Non-African American) 65.1 ml/min; Potassium 3.8 mmol/L (3.5-5.1); Total Protein 7.7 gm/dl (6.4-8.2)
--- NOTE | 2021-01-18 11:29 | Psychiatric Progress Note ---
Date of Service January 18, 2021 Impression / Recommendations Impression 40-year-old female with history of mood disorder presenting with increasing depression and suicidal ideation. Patient carries a diagnosis of bipolar disorder although provides a history of manic-like symptoms only in the context of Adderall usage. We will continue to gather outpatient records in order to elucidate diagnosis. Patient will benefit from inpatient hospitalization for purposes of safety, stabilization, medication management. (1) Depression with suicidal ideation: The patient was admitted to the [facility] ([facility]) on every 15 minute checks (behavioral with suicide precautions for safety. The patient will participate in group, recreational, and milieu therapies and will be offered additional individual and family sessions as clinically appropriate. 01/18/2021Trintellix dose remains at 10 mg p.o. daily, propanolol 20 mg twice daily, Valium 2 mg twice daily, Abilify 10 mg nightly tonight. 01/16/2021we will continue on the same regimen for now, as needed Zofran added to aid with nausea. 01/15/2021atient is taking propanolol 20 twice daily, Trintellix 10 p.o. daily and Abilify 5 mg p.o. nightly. In order to target impulsivity we will increase Abilify to 7.5 mg nightly starting tonight. Inventory Assets Strengths: Family support, insight Needs: Stability of mood Risk Factors Assessment Male: No : Yes Mental Health Diagnoses: Yes Hopelessness: No Protective Factors Assessment Mandaeism Beliefs: Yes Employed: No (disabled) Stable Relationships: Yes Supportive Family: Yes Interval History Chief Complaint "I just had a difficult family meeting". Review of Systems Sleep Information Total Hours of Sleep: 6.5 Sleep Comments: Pt awake once with complaints of pain - see MAR and nurse's note. Meal Information Percent Meal Consumed - Breakfast: 90 Percent Meal Consumed - Lunch: 70 Percent Meal Consumed - Dinner: 80 Subjective Subjective Patient seen, chart reviewed and case discussed with treatment team, nursing and social work. Patient reports a good night of sleep and strong appetite. No side effects reported or observed. Regarding mood, patient reports some improvement which they attribute to the medications as well as the therapy they have received on the unit. Patient sta chauncey that her suicidal ideation has resolved and she is starting to feel better. She was seen to be crying today after the family meeting which she stated made her anxious. She is agreeable to increase dosage of Abilify to 10 mg tonight. I spent 30 minutes with the patient, 50% of which was dedicated to counselling and coordination of care. Physical Exam Psychiatric Orientation: alert and oriented x 3 Apperance: appropriately groomed Eye Contact: + fair eye contact Motor Behavior: no abnormal motor movements Speech: normal rate/rhythm/volume of speech Affect: + depressed affect, + anxious affect and + tearful affect Mood: + depressed mood and + anxious mood Thought Process: goal directed thought process and linear/logical thought p rocess Thought Content: reality based without delusions Suicidal Thoughts: denies suicidal thoughts, denies suicidal plan and denies suicidal intent Homicidal Thoughts: denies homicidal thoughts Hallucinations: no auditory hallucinations and no visual hallucinations Cognition: remote memory grossly intact Estimated Intelligence: consistent with education level Insight: + fair insight Judgement: + fair judgement Vital Signs (Past 24 Hours) Last Vital Signs Temp 36.7 C 01/18/21 06:53 Pulse 114 H 01/18/21 06:55 Resp 16 01/18/21 06:53 BP 106/69 01/18/21 06:55 Pulse Ox 97 01/14/21 23:22 Results & Data ([facility]) Laboratory Results Laboratory Results - last 24 hr 01/14/21 01/18/21 19:42 08:08 Sodium 139 Potassium 3.8 Chloride 107 Carbon Dioxide 25 Anion Gap 6.0 BUN 17 Creatinine 1.08 Est Cr Clr Drug Dosing 144.2 Est GFR ( Amer) 75.4 Est GFR (Non-Af Amer) 65.1 Fasting Glucose 100 H Calcium 9.2 Total Bilirubin 0.9 AST 27 ALT 49 Alkaline Phosphatase 72 Total Protein 7.7 Albumin 3.7 Globulin 4.0 Albumin/Globulin Ratio 0.9 Triglycerides 142 Cholesterol 147 LDL Cholesterol, Calc 80 VLDL Cholesterol, Calc 28 HDL Cholesterol 39 Cholesterol/HDL Ratio 4 U Marijuana THC Carboxy 92 H Drug Screen Comment SEE NOTE Current Inpatient Medications Current Inpatient Medications: Current Inpatient Medications Acetaminophen (Acetaminophen 325 Mg Tab) 650 mg PO Q4H PRN PRN Reason: Headache or Minor Fever Stop: 02/13/21 22:49 Last Admin: 01/17/21 03:39 Dose: 650 mg Documented by: Al Hydrox/Mg Hydrox/Simethicone (Aluminum/Magnesium Susp 30 Ml Udc) 30 ml PO Q4H PRN PRN Reason: GI Upset Stop: 02/13/21 22:49 Last Admin: 01/17/21 18:54 Dose: 30 ml Documented by: Aripiprazole (Aripiprazole 5 Mg Tab) 7.5 mg PO HS JENNY Stop: 02/14/21 21:59 Last Admin: 01/17/21 21:07 Dose: 7.5 mg Documented by: Bismuth Subsalicylate (Bismuth Subsalicylate Liqd 236 Ml) 15 ml PO PRN PRN PRN Reason: Loose Stool Stop: 02/13/21 22:49 Last Admin: 01/17/21 18:54 Dose: 15 ml Documented by: Bupropion HCl (Bupropion Hcl 75 Mg Tablet) 75 mg PO ONE ONE Stop: 01/18/21 11:31 Diazepam (Diazepam 5 Mg Tablet) 2.5 mg PO BID [facility] Stop: 02/16/21 09:29 Last Admin: 01/18/21 08:48 Dose: 2.5 mg Documented by: Ibuprofen (Ibuprofen 800 Mg Tab) 800 mg PO Q8 PRN PRN Reason: Pain Stop: 02/16/21 08:44 Last Admin: 01/17/21 09:57 Dose: 800 mg Documented by: Magnesium Hydroxide (Magnesium Hydroxide Susp 30 Ml Udc) 30 ml PO DAILY PRN PRN Reason: Constipation Stop: 02/13/21 22:49 Metformin HCl (Metformin Hcl 500 Mg Tab) 1,000 mg PO BIDM [facility] Stop: 02/14/21 08:59 Last Admin: 01/18/21 08:48 Dose: 1,000 mg Documented by: Ondansetron HCl (Ondansetron 4 Mg Od Tab) 4 mg PO Q8H PRN PRN Reason: Nausea Stop: 02/15/21 10:48 Last Admin: 01/17/21 09:57 Dose: 4 mg Documented by: Propranolol HCl (Propranolol Hcl 20 Mg Tab) 20 mg PO BID JENNY Stop: 02/14/21 08:59 Last Admin: 01/18/21 08:49 Dose: 20 mg Documented by: Sodium Chloride (Sodium Chloride 0.65% Na Soln 45 Ml ([place])) 1 - 2 sprays NA PRN PRN PRN Reason: Nasal Dryness/Congestion Stop: 02/13/21 22:49 Vortioxetine (Vortioxetine Hydrobromide) 1 ea PO HS JENNY Stop: 02/14/21 21:59 Last Admin: 01/17/21 21:09 Dose: 1 ea Documented by: Mental Health & Subst Abuse Tx Psychiatrist Name of Psychiatrist: Iwona Barry Psychiatrist's Date of Appointment with Psychiatrist: 01/25/21 Time of Appointment with Psychiatrist: 2:20 p.m. Psychiatric Appointment Comment: [id number] [facility] Therapist Name of Therapist: [facility] Therapist's Date of Therapist Appointment: 01/21/21 Time of Therapist Appointment: 3:00 p.m. Therapy Appointment Comment: [address] [place] [address] Professional Skateboarder Name of Professional Skateboarder: None Post Discharge Appointments Primary Care Physician Name Of Family Doctor: [facility] Date of Appointment with PCP: 01/28/21 Time of Appointment with PCP: 10:40 a.m. Provider Appointment Comment: [id number] [facility] Contact Information Discharge Discharge Address: [address] [place] [address] [place], [place], [place]
[2021-01-18] MEDS ORDERED: buPROPion HCl 75 MG TABLET PO ONE (11:30)
[2021-01-18] MEDS: ALUMINUM/MAGNESIUM SUSP 30 ML UDC PO PRN (16:21)
[2021-01-18] MEDS: BISMUTH SUBSALICYLATE LIQD 236 ML PO PRN (16:23)
[2021-01-18] MEDS: ARIPiprazole 10 MG TAB PO SCH (21:07)
[2021-01-18] MEDS: VORTIOXETINE HYDROBROMIDE PO SCH (21:07)
[2021-01-19] MEDS: diazePAM 5 MG TABLET PO SCH ×2 (08:47→20:44)
[2021-01-19] MEDS: PROPRANOLOL HCL 20 MG TAB PO SCH ×2 (08:48→20:44)
[2021-01-19] MEDS: metFORMIN HCL 500 MG TAB PO SCH ×2 (08:48→17:26)
--- NOTE | 2021-01-19 10:33 | Psychiatric Progress Note ---
Date of Service January 19, 2021 Impression / Recommendations Impression 40-year-old female with history of mood disorder presenting with increasing depression and suicidal ideation. Patient carries a diagnosis of bipolar disorder although provides a history of manic-like symptoms only in the context of Adderall usage. We will continue to gather outpatient records in order to elucidate diagnosis. Patient will benefit from inpatient hospitalization for purposes of safety, stabilization, medication management. (1) Depression with suicidal ideation: The patient was admitted to the [facility] ([facility] unit) on every 15 minute checks (behavioral with suicide precautions for safety. The patient will participate in group, recreational, and milieu therapies and will be offered additional individual and family sessions as clinically appropriate. 01/19/2021ontinue current regimen patient appears to be making incremental progress. 01/18/2021Trintellix dose remains at 10 mg p.o. daily, propanolol 20 mg twice daily, Valium 2 mg twice daily, Abilify 10 mg nightly tonight. 01/16/2021we will continue on the same regimen for now, as needed Zofran added to aid with nausea. 01/15/2021atient is taking propanolol 20 twice daily, Trintellix 10 p.o. daily and Abilify 5 mg p.o. nightly. In order to target impulsivity we will increase Abilify to 7.5 mg nightly starting tonight. Inventory Assets Strengths: Family support, insight Needs: Stability of mood Risk Factors Assessment Male: No : Yes Mental Health Diagnoses: Yes Hopelessness: No Protective Factors Assessment Spiritism Beliefs: Yes Employed: No (disabled) Stable Relationships: Yes Supportive Family: Yes Interval History Chief Complaint "I am doing well thank you". Review of Systems Sleep Information Total Hours of Sleep: 8.75 Sleep Comments: Pt awake once with complaints of pain - see MAR and nurse's note. Meal Information Percent Meal Consumed - Breakfast: 75 Percent Meal Consumed - Lunch: 85 Percent Meal Consumed - Dinner: 75 Subjective Subjective Patient was seen & assessed and interval progress reviewed with treatment team nursing and social work. Patient reports that her mood continues to improve. She is still somewhat depressed although no longer complaining of suicidal ideation. She attributes the improvement to the medications as well as the therapy she has received on the unit. States that she feels the Valium medication is helping her even at low dose. She is denying any side effects of the medication at this time. Patient is seen eating well and sleeping well without issue. I spent 30 minutes with the patient, 50% of which was dedicated to counselling and coordination of care. Physical Exam Psychiatric Orientation: alert and oriented x 3 Apperance: appropriately groomed Eye Contact: + fair eye contact Motor Behavior: no abnormal motor movements Speech: normal rate/rhythm/volume of speech Affect: + depressed affect, + anxious affect and + tearful affect Mood: + depressed mood and + anxious mood Thought Process: goal directed thought process and linear/logical thought process Thought Content: reality based without delusions Suicidal Thoughts: denies suicidal thoughts, denies suicidal plan and denies suicidal intent Homicidal Thoughts: denies homicidal thoughts Hallucinations: no auditory hallucinations and no visual hallucinations Cognition: remote memory grossly intact Estimated Intelligence: consistent with education level Insight: + fair insight Judgement: + poor judgement and + fair judgement Vital Signs (Past 24 Hours) Last Vital Signs Temp 36.6 C 01/19/21 06:39 Pulse 98 H 01/19/21 06:39 Resp 16 01/19/21 06:39 BP 127/87 01/19/21 06:39 Pulse Ox 97 01/14/21 23:22 [facility] & [facility] Current Inpatient Medications Current Inpatient Medications: Current Inpatient Medications Acetaminophen (Acetaminophen 325 Mg Tab) 650 mg PO Q4H PRN PRN Reason: Headache or Minor Fever Stop: 02/13/21 22:49 Last Admin: 01/17/21 03:39 Dose: 650 mg Documented by: Al Hydrox/Mg Hydrox/Simethicone (Aluminum/Magnesium Susp 30 Ml Udc) 30 ml PO Q4H PRN PRN Reason: GI Upset Stop: 02/13/21 22:49 Last Admin: 01/18/21 16:21 Dose: 30 ml Documented by: Aripiprazole (Aripiprazole 10 Mg Tab) 10 mg PO HS JENNY Stop: 02/17/21 21:59 Last Admin: 01/18/21 21:07 Dose: 10 mg Documented by: Bismuth Subsalicylate (Bismuth Subsalicylate Liqd 236 Ml) 15 ml PO PRN PRN PRN Reason: Loose Stool Stop: 02/13/21 22:49 Last Admin: 01/18/21 16:23 Dose: 15 ml Documented by: Diazepam (Diazepam 5 Mg Tablet) 2.5 mg PO BID JENNY Stop: 02/16/21 09:29 Last Admin: 01/19/21 08:47 Dose: 2.5 mg Documented by: Ibuprofen (Ibuprofen 800 Mg Tab) 800 mg PO Q8 PRN PRN Reason: Pain Stop: 02/16/21 08:44 Last Admin: 01/17/21 09:57 Dose: 800 mg Documented by: Magnesium Hydroxide (Magnesium Hydroxide Susp 30 Ml Udc) 30 ml PO DAILY PRN PRN Reason: Constipation Stop: 02/13/21 22:49 Metformin HCl (Metformin Hcl 500 Mg Tab) 1,000 mg PO BIDM JENNY Stop: 02/14/21 08:59 Last Admin: 01/19/21 08:48 Dose: 1,000 mg Documented by: Ondansetron HCl (Ondansetron 4 Mg Od Tab) 4 mg PO Q8H PRN PRN Reason: Nausea Stop: 02/15/21 10:48 Last Admin: 01/17/21 09:57 Dose: 4 mg Documented by: Propranolol HCl (Propranolol Hcl 20 Mg Tab) 20 mg PO BID JENNY Stop: 02/14/21 08:59 Last Admin: 01/19/21 08:48 Dose: 20 mg Documented by: Sodium Chloride (Sodium Chloride 0.65% Na Soln 45 Ml ([place])) 1 - 2 sprays NA PRN PRN PRN Reason: Nasal Dryness/Congestion Stop: 02/13/21 22:49 Vortioxetine (Vortioxetine Hydrobromide) 1 ea PO HS JENNY Stop: 02/14/21 21:59 Last Admin: 01/18/21 21:07 Dose: 1 ea Documented by: Mental Health & Subst Abuse Tx Psychiatrist Name of Psychiatrist: Iwona Barry Psychiatrist's Date of Appointment with Psychiatrist: 01/25/21 Time of Appointment with Psychiatrist: 2:20 p.m. Psychiatric Appointment Comment: [id number] [facility] Therapist Name of Therapist: [facility] Shoaib [facility]vall Therapist's Date of Therapist Appointment: 01/21/21 Time of Therapist Appointment: 3:00 p.m. Therapy Appointment Comment: [address] [place] [address] Senior Office Support Assistant Sosa Name of Senior Office Support Assistant Sosa: None Post Discharge Appointments Primary Care Physician Name Of Family Doctor: Iwona Burnett - Dr. [facility] Date of Appointment with PCP: 01/28/21 Time of Appointment with PCP: 10:40 a.m. Provider Appointment Comment: [id number] [facility] Contact Information Discharge Discharge Address: [address] [place] [address], [place]
[2021-01-19] MEDS: ALUMINUM/MAGNESIUM SUSP 30 ML UDC PO PRN ×2 (12:31→22:30)
[2021-01-19] MEDS: BISMUTH SUBSALICYLATE LIQD 236 ML PO PRN ×3 (12:32→22:30)
[2021-01-19] MEDS: ARIPiprazole 10 MG TAB PO SCH (20:44)
[2021-01-19] MEDS: VORTIOXETINE HYDROBROMIDE PO SCH (20:47)
[2021-01-20] MEDS: PROPRANOLOL HCL 20 MG TAB PO SCH ×2 (08:44→20:50)
[2021-01-20] MEDS: diazePAM 5 MG TABLET PO SCH ×2 (08:44→20:50)
[2021-01-20] MEDS: metFORMIN HCL 500 MG TAB PO SCH ×2 (08:44→17:14)
--- NOTE | 2021-01-20 12:13 | Psychiatric Progress Note ---
Date of Service January 20, 2021 Impression / Recommendations Impression 40-year-old female with history of mood disorder presenting with increasing depression and suicidal ideation. Patient carries a diagnosis of bipolar disorder although provides a history of manic-like symptoms only in the context of Adderall usage. Patient presented depressed but is now no longer complaining of suicidal ideation. Patient will benefit from inpatient hospitalization for purposes of safety, stabilization, medication management. (1) Depression with suicidal ideation: The patient was admitted to the [facility] ([facility]) on every 15 minute checks (behavioral with suicide precautions for safety. The patient will participate in group, recreational, and milieu therapies and will be offered additional individual and family sessions as clinically appropriate. 01/20/2021--patient is improving well, and now denying suicidal ideation. We will start discharge planning with likely discharge for tomorrow 01/19/2021ontinue current regimen patient appears to be making incremental progress. 01/18/2021Trintellix dose remains at 10 mg p.o. daily, propanolol 20 mg twice daily, Valium 2 mg twice daily, Abilify 10 mg nightly tonight. 01/16/2021we will continue on the same regimen for now, as needed Zofran added to aid with nausea. 01/15/2021atient is taking propanolol 20 twice daily, Trintellix 10 p.o. daily and Abilify 5 mg p.o. nightly. In order to target impulsivity we will increase Abilify to 7.5 mg nightly starting tonight. Inventory Assets Strengths: Family support, insight Needs: Stability of mood Risk Factors Assessment Male: No : Yes Mental Health Diagnoses: Yes Hopelessness: No Protective Factors Assessment Worship Beliefs: Yes Employed: No (disabled) Stable Relationships: Yes Supportive Family: Yes Interval History Chief Complaint "[]". Review of Systems Sleep Information Total Hours of Sleep: 36.6 Sleep Comments: pt on q-15 minute checks Meal Information Percent Meal Consumed - Breakfast: 80 Percent Meal Consumed - Lunch: 50 Percent Meal Consumed - Dinner: 50 Subjective Subjective Patient seen, chart reviewed and case discussed with treatment team, nursing and social work. Regarding mood, patient reports some improvement which they attribute to the medications as well as the therapy they have received on the unit. She is denying suicidal ideation, and states that her depression and anxiety have improved. She is thankful for the care she has received here. Patient reports a good night of sleep and strong appetite. No side effects reported or observed. I spent 30 minutes with the patient, 50% of which was dedicated to counselling and coordination of care. Physical Exam Psychiatric Orientation: alert and oriented x 3 Apperance: appropriately groomed Eye Contact: + fair eye contact Motor Behavior: no abnormal motor movements Speech: normal rate/rhythm/volume of speech Affect: + depressed affect, + anxious affect and + tearful affect Mood: + depressed mood and + anxious mood Thought Process: goal directed thought process and linear/logical thought process Thought Content: reality based without delusions Suicidal Thoughts: denies suicidal thoughts, denies suicidal plan and denies suicidal intent Homicidal Thoughts: denies homicidal thoughts Hallucinations: no auditory hallucinations and no visual hallucinations Cognition: remote memory grossly intact Estimated Intelligence: consistent with education level Insight: + fair insight Judgement: + poor judgement and + fair judgement Vital Signs (Past 24 Hours) Last Vital Signs Temp 36.6 C 01/20/21 06:52 Pulse 118 H 01/20/21 06:53 Resp 18 01/20/21 06:52 BP 104/75 01/20/21 06:53 Pulse Ox 97 01/14/21 23:22 Results & Data (RUST) Current Inpatient Medications Current Inpatient Medications: Current Inpatient Medications Acetaminophen (Acetaminophen 325 Mg Tab) 650 mg PO Q4H PRN PRN Reason: Headache or Minor Fever Stop: 02/13/21 22:49 Last Admin: 01/17/21 03:39 Dose: 650 mg Documented by: Al Hydrox/Mg Hydrox/Simethicone (Aluminum/Magnesium Susp 30 Ml Udc) 30 ml PO Q4H PRN PRN Reason: GI Upset Stop: 02/13/21 22:49 Last Admin: 01/19/21 22:30 Dose: 30 ml Documented by: Aripiprazole (Aripiprazole 10 Mg Tab) 10 mg PO HS JENNY Stop: 02/17/21 21:59 Last Admin: 01/19/21 20:44 Dose: 10 mg Documented by: Bismuth Subsalicylate (Bismuth Subsalicylate Liqd 236 Ml) 15 ml PO PRN PRN PRN Reason: Loose Stool Stop: 02/13/21 22:49 Last Admin: 01/19/21 22:30 Dose: 15 ml Documented by: Diazepam (Diazepam 5 Mg Tablet) 2.5 mg PO BID JENNY Stop: 02/16/21 09:29 Last Admin: 01/20/21 08:44 Dose: 2.5 mg Documented by: Ibuprofen (Ibuprofen 800 Mg Tab) 800 mg PO Q8 PRN PRN Reason: Pain Stop: 02/16/21 08:44 Last Admin: 01/17/21 09:57 Dose: 800 mg Documented by: Magnesium Hydroxide (Magnesium Hydroxide Susp 30 Ml Udc) 30 ml PO DAILY PRN PRN Reason: Constipation Stop: 02/13/21 22:49 Metformin HCl (Metformin Hcl 500 Mg Tab) 1,000 mg PO BIDM JENNY Stop: 02/14/21 08:59 Last Admin: 01/20/21 08:44 Dose: 1,000 mg Documented by: Ondansetron HCl (Ondansetron 4 Mg Od Tab) 4 mg PO Q8H PRN PRN Reason: Nausea Stop: 02/15/21 10:48 Last Admin: 01/17/21 09:57 Dose: 4 mg Documented by: Propranolol HCl (Propranolol Hcl 20 Mg Tab) 20 mg PO BID JENNY Stop: 02/14/21 08:59 Last Admin: 01/20/21 08:44 Dose: 20 mg Documented by: Sodium Chloride (Sodium Chloride 0.65% Na Soln 45 Ml ([place])) 1 - 2 sprays NA PRN PRN PRN Reason: Nasal Dryness/Congestion Stop: 02/13/21 22:49 Vortioxetine (Vortioxetine Hydrobromide) 1 ea PO HS JENNY Stop: 02/14/21 21:59 Last Admin: 01/19/21 20:47 Dose: 1 ea Documented by: Mental Health & Subst Abuse Tx Psychiatrist Name of Psychiatrist: Iwona Barry Psychiatrist's Date of Appointment with Psychiatrist: 01/25/21 Time of Appointment with Psychiatrist: 2:20 p.m. Psychiatric Appointment Comment: [id number] [facility] Therapist Name of Therapist: [facility]'s Date of Therapist Appointment: 01/21/21 Time of Therapist Appointment: 3:00 p.m. Therapy App[facility]ment [facility] [address] [place] [place] [address] Anesthesiologist/Physician Name of Anesthesiologist/Physician: None Post Discharge Appointments Primary Care Physician Name Of Family Doctor: Iwona Burnett - Dr. House Primary [facility] Date of Appointment with PCP: 01/28/21 Time of Appointment with PCP: 10:40 a.m. Provider Appointment Comment: [id number] [facility] [place] Contact Information Discharge Discharge Address: [address], [place], [place]
[2021-01-20] MEDS: ARIPiprazole 10 MG TAB PO SCH (20:50)
[2021-01-20] MEDS: VORTIOXETINE HYDROBROMIDE PO SCH (20:57)
[2021-01-20] MEDS: BISMUTH SUBSALICYLATE LIQD 236 ML PO PRN (23:45)
[2021-01-21] MEDS: diazePAM 5 MG TABLET PO SCH (08:54)
[2021-01-21] MEDS: metFORMIN HCL 500 MG TAB PO SCH (08:55)
[2021-01-21] MEDS: PROPRANOLOL HCL 20 MG TAB PO SCH (08:55)
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
== END 2021-01-21 12:55 | disposition home or self-care (01) | DRG 881 ==
LOC: ED 18:06 → 3S 22:50
DX: Z88.1 Allergy status to other antibiotic agents; Z87.891 Personal history of nicotine dependence; Z79.84 Long term (current) use of oral hypoglycemic drugs; F43.10 Post-traumatic stress disorder, unspecified; F32.9 Major depressive disorder, single episode, unspecified; R45.851 Suicidal ideations